=== PATIENT | female | born 1955 | race Hispanic/Latino ===

== ENCOUNTER 2021-04-13 19:28 | Observation (INO) | payer OTHER ==
[2021-04-13] MEDS ORDERED: Calcium Carbonate 500 MG ChewTAB PO PRN (19:32)
[2021-04-13] MEDS ORDERED: Senokot S 8.6-50 MG TAB PO PRN (19:32)
[2021-04-13] MEDS ORDERED: Ondansetron PF 4 MG/2 ML Vial IVP PRN (19:32)
[2021-04-13] MEDS ORDERED: Acetaminophen 325 MG TAB PO PRN (19:32)
[2021-04-13] MEDS ORDERED: Zolpidem Tartrate 5 MG TAB PO PRN (19:32)
[2021-04-13] MEDS ORDERED: Guaifenesin DM 100-10/5 ML UDCUP PO PRN (19:32)
[2021-04-13 20:00] VITALS: BMI 28.8
[2021-04-13] MEDS ORDERED: Sodium Chloride 0.9% 500 ML IV SCH (20:15)
[2021-04-13 20:32] LABS: Magnesium 1.9 mg/dL (1.6-2.6)
[2021-04-13] MEDS: Potassium Chloride 20 MEQ TAB PO SCH ×2 (20:49→23:37)
[2021-04-13 21:12] LABS: Bilirubin Neg (Negative); Blood, Urine Negative (Negative); Clarity Clear (Clear); Glucose, Urine (Dipstick) Normal (Negative); Ketone, Urine Negative (Negative); Leukocyte 25 (Negative); Nitrite Negative (Negative); Protein, Urine (Dipstick) Negative (Neg-Trace); Urobilinogen Normal mg/dL (Less than 2)
[2021-04-13 21:22] LABS: Bacteria/HPF None Seen HPF (None Seen); Mucous/LPF None Seen LPF (<2+); RBC/HPF 0-3 HPF (0-3); Squamous Epithelial 0-3 HPF (0-3); WBC/HPF 0-3 HPF (0-3)
[2021-04-14 04:41] LABS: Anion Gap 12 mmol/L (10-20); BUN (Urea Nitrogen) 13 mg/dL (9.8-20.1); Calc. Creatinine Clearance 92 mL/min (70-130); Calcium 9.2 mg/dL (7.8-10.44); Carbon Dioxide 27 mmol/L (23-31); Cardiac Risk 3.6 (Less than 4.5); Chloride 109 mmol/L (98-107); Cholesterol 203 mg/dl (< 200 Desired); Glucose 109 mg/dL (80-115); HDL Cholesterol 57 mg/dL (>60 Neg Risk); LDL Cholesterol, Calculated 109 mg/dL; Sodium 144 mmol/L (136-145); Triglycerides 187 mg/dL (Less than 150)
[2021-04-14] MEDS ORDERED: Potassium Chloride 10 MEQ TAB PO SCH (08:00)
[2021-04-14] MEDS ORDERED: Enoxaparin Sodium 40 MG/0.4 ML SYRINGE SC SCH (09:00)
[2021-04-14] MEDS ORDERED: Hydrochlorothiazide 25 MG TAB PO SCH (09:00)
[2021-04-14 17:24] VITALS: BP 148/67; TEMP 98
== END 2021-04-14 19:00 | disposition home or self-care (01) ==
LOC: CSHTELE 19:28
PROVIDERS: ADMIT Family Medicine; ATTEND Internal Medicine
DX: R55 Syncope and collapse (principal); E87.6 Hypokalemia; I45.10 Unspecified right bundle-branch block; I12.9 Hypertensive chronic kidney disease with stage 1 through stage 4 chronic kidney disease, or unspecified chronic kidney disease; N18.9 Chronic kidney disease, unspecified; E86.0 Dehydration; F41.8 Other specified anxiety disorders; Z79.899 Other long term (current) drug therapy
CPT/HCPCS: 36415; 80048; 80061; 81001; 83735; 84443; 84484; 85379; 93005; 93010; 93306; 96372; G0378; J1650; J7030